=== PATIENT | female | born 1950 | race Caucasian/White ===

== ENCOUNTER 2018-05-30 07:25 | Emergency (ER) | payer MEDICARE ==
[2018-05-30 07:53] VITALS: BP 156/70
--- NOTE | 2018-05-30 08:20 | ED ---
GI/ HPI - HPI Summary HPI Summary: 67 yr old female with the complaint of hesitancy, frequency of urination, dysuria, and some blood in the urine. The patient is 5 weeks post chemo for leukemia. She states she goes to [facility]. No fever, chills , back pain. - History of Current Complaint Chief Complaint: UCGU Time Seen by Provider: 05/30/18 07:55 Stated Complaint: URINARY COMPLAINT Pain Intensity: 0 - Allergy/Home Medications Allergies/Adverse Reactions: Allergies Allergy/AdvReac Type Severity Reaction Status Date / Time Penicillins Allergy Unknown Rash Verified 05/30/18 07:40 latex Allergy Rash Verified 05/30/18 07:40 Home Medications: Home Medications Albuterol HFA INHALER* [Ventolin HFA Inhaler*] 2 puff INH Q4H PRN 05/30/18 [ History Confirmed 05/30/18] Atorvastatin* [Lipitor*] 20 mg PO DAILY 05/30/18 [History Confirmed 05/30/18] Escitalopram (NF) [Lexapro 10 mg (NF)] 10 mg PO DAILY 05/30/18 [History Confirmed 05/30/18] Metoprolol Succinate [Metoprolol Succinate ER] 12.5 mg PO DAILY 05/30/18 [ History Confirmed 05/30/18] PMH/Surg Hx/FS Hx/Imm Hx Cardiovascular History: Reports: Hx Hypertension Respiratory History: Reports: Hx Asthma - Cancer History Cancer Type, Location and Year: LEUKEMIA - Surgical History Surgery Procedure, Year, and Place: HYSTERECTOMY. TRIGGER FINGER RELEASE. BLADDER SLING Infectious Disease History: No Infectious Disease History: Denies: Traveled Outside the [place] in Last 30 Days - Social History Alcohol Use: Rare Substance Use Type: Reports: None Smoking Status (MU): Former Smoker Review of Systems Constitutional: Negative Positive: burning, frequency, hematuria, urgency All Other Systems Reviewed And Are Negative: Yes Physical Exam Triage Information Reviewed: Yes Vital Signs On Initial Exam: Initial Vitals Temp Pulse Resp BP Pulse Ox 99.6 F 84 17 156/70 96 05/30/18 07:45 05/30/18 07:45 05/30/18 07:45 05/30/18 07:45 05/30/18 07:45 Vital Signs Reviewed: Yes Appearance: Positive: Well-Appearing, No Pain Distress Skin: Positive: Warm, Other - No bruises, no petechia. Eyes: Positive: EOMI ENT: Positive: Normal ENT inspection Respiratory/Lung Sounds: Positive: Clear to Auscultation, Breath Sounds Present Cardiovascular: Positive: RRR. Negative: Murmur Abdomen Description: Positive: Nontender. Negative: Distended Musculoskeletal: Positive: Strength/ROM Intact Neurological: Positive: Sensory/Motor Intact, Alert, Oriented to Person Place, Time, CN Intact II-III Psychiatric: Positive: Normal Diagnostics - Vital Signs Vital Signs Temp Pulse Resp BP Pulse Ox 05/30/18 07:45 99.6 F 84 17 156/70 96 - Laboratory Lab Statement: Any lab studies that have been ordered have been reviewed, and results considered in the medical decision making process. GIGU Course/Dx - Course Course Of Treatment: 67 yr old female with the complaint of hematuria, pain, and on chemo for leukemia. She is going over to the ER for further labs and work up and treatment. - Diagnoses Provider Diagnoses: Hematuria Discharge - Sign-Out/Discharge Documenting (check all that apply): Patient Departure All imaging exams completed and their final reports reviewed: No Studies - Discharge Plan Condition: Good Disposition: HOME-RECOMMEND TO ED Patient Education Materials: Acute Urinary Retention in Women (ED), Hematuria ( ED) Referrals: Aliya Perez MD [Primary Care Provider] - Additional Instructions: Go to the ER now for further work up and treatment for your urinary symptoms, and Leukemia. - Billing Disposition and Condition Condition: GOOD Disposition: Home-Recommend to ED
== END 2018-05-30 08:38 | disposition home health service (06) ==
LOC: UCCORT 07:25
DX: Z87.891 Personal history of nicotine dependence (principal); Z88.0 Allergy status to penicillin; I10 Essential (primary) hypertension; J45.909 Unspecified asthma, uncomplicated; R31.9 Hematuria, unspecified
CPT/HCPCS: 99202; G0463